=== PATIENT | female | born 1970 | race Caucasian/White ===

== ENCOUNTER 2016-10-28 08:45 | Outpatient (CLI) | payer OTHER ==
--- NOTE | 2016-10-28 10:46 | DIAGNOSTIC IMAGING REPORT ---
PROCEDURE: MR BRAIN W/WO CONTRAST INDICATION: DIZZINES; UNBALANCE TECHNIQUE: Multiplanar multisequence MRI imaging of the brain without contrast. Post administration of 19 ml ProHance gadolinium based IV contrast, three plane T1 fat sat sequences were obtained. COMPARISON: Head CT 05/24/2005 FINDINGS: The midline structures are normally formed. The ventricular system is normal in size. Basal cisterns are patent. Flow voids in the major intracranial vessels are normal. No vascular malformations seen post contrast. Signal throughout the fontaine and white matter is normal. No restricted diffusion to suggest acute ischemia. No evidence of acute or chronic intraparenchymal or extra-axial hemorrhage. No mass, mass effect, or midline shift. No suspicious enhancement. The temporal bones and internal auditory canals are normal. Normal signal in the visible bones. The sinuses are normally aerated. Visible extracranial soft tissues including the orbits are normal. IMPRESSION: 1. Normal MRI of the brain. 2. No abnormal enhancement.
== END 2016-10-28 23:00 ==
LOC: MRI SRH 08:45
DX: R42 Dizziness and giddiness (principal); R26.89 Other abnormalities of gait and mobility